=== PATIENT | female | born 2000 | race Caucasian/White ===

== ENCOUNTER → 2022-05-17 10:57 | Outpatient (CLI) | payer BC, SELFPAY ==
--- NOTE | ~2022-05-17 | MR_ITS ---
EXAMINATION: MR hand RT wo con DATE: 05/17/2022 11:50 INDICATION: Right hand pain post recent fall TECHNIQUE: Magnetic resonance imaging (MRI) of the right hand was performed without intravenous contr ast to include the metacarpals and digits. Sequences included axial, sagittal and coronal T1-weighted FSE and T2-weighted FS FSE. COMPARISON: None FINDINGS: Bone alignment is normal. There is normal marrow signal throughout with no reactive edema, fracture o r pathologic marrow replacing process. Joint spaces appear normal. The scapholunate and lunotriquetra l ligaments are normal. The collateral ligament complex at the metacarpophalangeal and interphalangea l joints are normal. Visualized portions of the flexor and extensor tendons are normal. No joint effu sions, tenosynovitis or other abnormal fluid collections. Guyon's canal in the carpal tunnel appear u nremarkable. Intrinsic musculature and subcutaneous tissues of the hand are unremarkable. No evident soft tissue edema. IMPRESSION: 1. Normal MRI of the right hand. Reviewed, dictated and finalized at location A. [employer]CH[employer]ICIAN
== END ==
DX: M79.641 Pain in right hand (principal); S69.90XA Unspecified injury of unspecified wrist, hand and finger(s), initial encounter; X58.XXXA Exposure to other specified factors, initial encounter
CPT/HCPCS: 73218